=== PATIENT | female | born 1955 | race Caucasian/White ===

== ENCOUNTER 2020-02-26 23:59 | Inpatient (IN) ==
[2020-02-27] MEDS ORDERED: niCARdipine 20 MG/200 ML MLS IVC ONE (00:36)
[2020-02-27 00:45] LABS: Basophils # 0.1 K/mcL (0.0-0.2); Basophils % 0.5 %; Eosinophils # 0.2 K/mcL (0.0-0.6); Eosinophils % 1.8 %; Hematocrit 40.8 % (35.3-44.9); Hemoglobin 12.8 g/dL (11.5-15.4); Immature Granulocytes % 0.4 % (0-4); Lymphocytes # 2.3 K/mcL (0.6-4.6); Lymphocytes % 17.7 %; Mean Corpuscular HGB Conc 31.4 g/dL (31.6-35.5); Mean Corpuscular Hemoglobin 26.1 pg (28.0-33.3); Mean Corpuscular Volume 83.1 fL (83.0-100.0); Mean Platelet Volume 11.3 fL (9.4-12.4); Monocytes # 0.6 K/mcL (0.0-1.3); Monocytes % 4.3 %; Neutrophils # 9.9 K/mcL (1.6-8.9); Platelet Count 286 K/mcL (140-400); Red Blood Count 4.91 M/mcL (3.82-4.97); Red Cell Distribution Width 13.4 % (11.5-14.5); Segmented Neutrophils % 75.3 %; White Blood Count 13.1 K/mcL (4.3-11.1)
[2020-02-27 00:52] LABS: INR 1.1; Prothrombin Time 13.2 Seconds (9.4-12.1)
[2020-02-27] MEDS ORDERED: Isovue-370 500 ML BOTTLE IVP ONE ×3 (00:54→03:01)
[2020-02-27 00:55] LABS: Activated Partial Thrombo Time 31.9 Seconds (26.0-36.0)
[2020-02-27 00:58] LABS: Bilirubin,Urine Negative (Negative); Blood,Urine Trace (Negative); Clarity,Urine Clear (Clear); Color,Urine Colorless (Yellow); Glucose,Urine (UA) Normal (Normal); Ketones,Urine Negative (Negative); Leukocyte Esterase,Urine Negative (Negative); Nitrite,Urine Negative (Negative); Protein,Urine 70 mg/dL (Neg-Trace); RBC,Urine 0-3 per hpf (0-3); Specific Gravity,Urine 1.013 (1.010-1.025); Urobilinogen,Urine Normal (Normal); WBC,Urine 0-3 per hpf (0-3)
[2020-02-27 01:05] LABS: Amphetamine Screen,Urine Negative ng/mL (Cutoff=1000); Barbiturate Screen,Urine Negative ng/mL (Cutoff=200); Benzodiazepines Screen,Urine Negative ng/mL (Cutoff=200); Cannabinoid Screen,Urine Negative ng/mL (Cutoff = 50); Cocaine Screen,Urine Negative ng/mL (Cutoff= 300); Opiate Screen,Urine Positive ng/mL (Cutoff=300); Phencyclidine Screen,Urine Negative ng/mL (Cutoff=25)
[2020-02-27 01:07] LABS: Alanine Aminotransferase 19 Units/L (7-52); Albumin 4.6 g/dL (3.5-5.7); Albumin/Globulin Ratio 1.1 (1.1-2.2); Alkaline Phosphatase 94 Units/L (34-104); Aspartate Amino Transferase 27 Units/L (13-39); BUN/Creatinine Ratio 15 (6-26); Bilirubin,Direct 0.1 mg/dL (0.0-0.2); Bilirubin,Indirect 0.4 mg/dL (0.0-1.0); Bilirubin,Total 0.5 mg/dL (0.3-1.0); Blood Urea Nitrogen 11 mg/dL (8-23); Calcium 9.9 mg/dL (8.6-10.3); Carbon Dioxide 24 mEq/L (23-29); Chloride 100 mEq/L (98-107); Globulin 4.3 g/dL (2.4-3.5); Glucose 122 mg/dL (70-105); Lipase 218 Units/L (11-82); Magnesium 1.6 mg/dL (1.6-2.6); Osmolality,Calculated 285 (280-300); Phosphorous 1.7 mg/dL (2.7-4.5); Potassium 2.6 mEq/L (3.5-5.1); Sodium 137 mEq/L (136-145); Total Protein 8.9 g/dL (6.4-8.9); Troponin I < 0.03 ng/mL (< 0.04); eGFR For African Americans > 60 (> 60); eGFR For Non-African Americans > 60 (> 60)
[2020-02-27 01:13] LABS: ABG Base Excess 2 mEq/L (-2 to 3); ABG HCO3 26 mEq/L (21-27); ABG Oxygen Saturation 100 % (95-98); ABG PCO2 39 mmHg (35-45); ABG PH 7.43 pH Units (7.32-7.45); ABG PO2 503 mmHg (85-104); ABG TCO2 27 mEq/L (20-26); Blood Gas VT 450 cc
[2020-02-27] MEDS ORDERED: *HR* Midazolam HCl 2 MG/2 ML VIAL IVP ONE (02:39)
[2020-02-27] MEDS ORDERED: niCARdipine 20 MG/200 ML MLS IVC SCH (02:45)
[2020-02-27] MEDS ORDERED: *HR* LORazepam 2 MG/ML VIAL IVP ONE (03:38)
[2020-02-27] MEDS ORDERED: *HR* FentaNYL (PF) 100 MCG/2 ML VIAL IVP ONE (04:48)
[2020-02-27] MEDS ORDERED: Potassium Chloride 40 MEQ, Lidocaine 1% 2 ML in 0.9 % Sodium Chloride 500 ML IVPB ONE (05:13)
[2020-02-27] MEDS ORDERED: Ondansetron 4 MG/2 ML VIAL IVP PRN (05:14)
[2020-02-27] MEDS ORDERED: Naloxone 0.4 MG/ML INJ IVP PRN (05:14)
[2020-02-27] MEDS ORDERED: Ringers Solution, Lactated 1,000 ML IVC SCH (05:15)
[2020-02-27] MEDS ORDERED: Artificial Tears SOLN 15 ML BOTTLE BOTH EYES PRN (05:56)
[2020-02-27] MEDS: niCARdipine 20 MG/200 ML MLS IVC SCH ×2 (06:17→07:28)
[2020-02-27] MEDS: FentaNYL (PF) 1,000 MCG/100 ML IV.SOLN IVC SCH ×2 (06:17→07:24)
[2020-02-27] MEDS: Artificial Tears SOLN 15 ML BOTTLE BOTH EYES SCH ×5 (07:06→23:40)
[2020-02-27] MEDS: Chlorhexidine Rinse 15 ML MOUTHWASH MM SCH ×2 (07:25→20:41)
[2020-02-27] MEDS: Pantoprazole 40 MG VIAL IVP SCH (07:26)
[2020-02-27] MEDS ORDERED: Perflutren Lipid Microsphere 1.3 ML in 0.9 % Sodium Chloride 8.7 ML IVP PRN (08:40)
[2020-02-27] MEDS ORDERED: Piperacillin/Tazobactam 3.375 GM in 0.9 % Sodium Chloride Mini Bag 100 ML IVPB ONE (08:42)
[2020-02-27] MEDS: Dexmedetomidine HCl 400 MCG/100 ML MLS IVC SCH ×2 (08:48→17:29)
[2020-02-27] MEDS ORDERED: Furosemide 40 MG/4 ML VIAL IVP ONE (08:59)
[2020-02-27] MEDS ORDERED: Piperacillin/Tazobactam 3.375 GM in 0.9 % Sodium Chloride Mini Bag 100 ML IVPB SCH (09:00)
[2020-02-27 09:29] LABS: Basophils % 0.3 %; Eosinophils % 0.2 %; Hematocrit 39.8 % (35.3-44.9); Hemoglobin 12.1 g/dL (11.5-15.4); Immature Granulocytes % 0.4 % (0-4); Lymphocytes # 1.3 K/mcL (0.6-4.6); Lymphocytes % 11.3 %; Mean Corpuscular HGB Conc 30.4 g/dL (31.6-35.5); Mean Corpuscular Volume 85.4 fL (83.0-100.0); Mean Platelet Volume 10.4 fL (9.4-12.4); Monocytes # 0.6 K/mcL (0.0-1.3); Monocytes % 5.2 %; Neutrophils # 9.5 K/mcL (1.6-8.9); Platelet Count 278 K/mcL (140-400); Red Blood Count 4.66 M/mcL (3.82-4.97); Red Cell Distribution Width 13.5 % (11.5-14.5); Segmented Neutrophils % 82.6 %; White Blood Count 11.5 K/mcL (4.3-11.1)
[2020-02-27 09:51] LABS: BUN/Creatinine Ratio 16 (6-26); Blood Urea Nitrogen 11 mg/dL (8-23); Carbon Dioxide 27 mEq/L (23-29); Chloride 100 mEq/L (98-107); Creatine Kinase 83 Units/L (30-223); Glucose 123 mg/dL (70-105); Magnesium 1.6 mg/dL (1.6-2.6); Osmolality,Calculated 281 (280-300); Phosphorous 3.8 mg/dL (2.7-4.5); Potassium 3.5 mEq/L (3.5-5.1); Sodium 135 mEq/L (136-145); eGFR For African Americans > 60 (> 60); eGFR For Non-African Americans > 60 (> 60)
[2020-02-27 10:06] LABS: Acetaminophen < 10 mcg/mL (10-20); Ethanol < 10 mg/dL (Less than 10); Salicylate < 2.5 mg/dL (15.0-30.0)
[2020-02-27 10:07] LABS: Thyroid Stimulating Hormone 1.108 mcIU/mL (0.340-5.600)
[2020-02-27 10:21] LABS: C-Reactive Protein < 5 mg/L (Less than 10)
[2020-02-27] MEDS: *HR* Heparin 5,000 UNIT/ML VIAL SQ SCH ×2 (12:57→21:17)
[2020-02-27] MEDS ORDERED: *HR* Etomidate 20 MG/10 ML AMPUL IVP ONE (15:55)
[2020-02-27] MEDS ORDERED: *HR* Rocuronium Bromide 100 MG/10 ML VIAL IVP ONE (15:55)
[2020-02-28] MEDS: Artificial Tears SOLN 15 ML BOTTLE BOTH EYES SCH ×4 (03:40→13:48)
[2020-02-28 04:06] LABS: Basophils % 0.4 %; Eosinophils % 0.4 %; Hematocrit 33.9 % (35.3-44.9); Hemoglobin 11.1 g/dL (11.5-15.4); Immature Granulocytes % 0.3 % (0-4); Lymphocytes # 1.7 K/mcL (0.6-4.6); Lymphocytes % 17.4 %; Mean Corpuscular HGB Conc 32.7 g/dL (31.6-35.5); Mean Corpuscular Hemoglobin 27.2 pg (28.0-33.3); Mean Corpuscular Volume 83.1 fL (83.0-100.0); Mean Platelet Volume 11.1 fL (9.4-12.4); Monocytes # 0.6 K/mcL (0.0-1.3); Neutrophils # 7.5 K/mcL (1.6-8.9); Platelet Count 293 K/mcL (140-400); Red Blood Count 4.08 M/mcL (3.82-4.97); Red Cell Distribution Width 13.7 % (11.5-14.5); Segmented Neutrophils % 75.5 %
[2020-02-28 04:25] LABS: Calcium 8.8 mg/dL (8.6-10.3); Magnesium 2.2 mg/dL (1.6-2.6); Phosphorous 4.6 mg/dL (2.7-4.5); Potassium 3.3 mEq/L (3.5-5.1)
[2020-02-28 04:57] LABS: ABG Base Excess 3 mEq/L (-2 to 3); ABG HCO3 28 mEq/L (21-27); ABG Oxygen Saturation 96 % (95-98); ABG PCO2 41 mmHg (35-45); ABG PH 7.44 pH Units (7.32-7.45); ABG PO2 77 mmHg (85-104); ABG TCO2 29 mEq/L (20-26); Blood Gas Modality ASSIST CONTROL; Blood Gas VT 400 cc
[2020-02-28] MEDS: Dexmedetomidine HCl 400 MCG/100 ML MLS IVC SCH (05:26)
[2020-02-28] MEDS: *HR* Heparin 5,000 UNIT/ML VIAL SQ SCH ×3 (05:27→20:39)
[2020-02-28 07:28] LABS: Basophils # 0.1 K/mcL (0.0-0.2); Basophils % 0.5 %; Eosinophils # 0.1 K/mcL (0.0-0.6); Eosinophils % 0.7 %; Hematocrit 35.3 % (35.3-44.9); Hemoglobin 10.9 g/dL (11.5-15.4); Immature Granulocytes % 0.3 % (0-4); Lymphocytes % 19.1 %; Mean Corpuscular HGB Conc 30.9 g/dL (31.6-35.5); Mean Corpuscular Hemoglobin 25.9 pg (28.0-33.3); Mean Corpuscular Volume 83.8 fL (83.0-100.0); Mean Platelet Volume 10.9 fL (9.4-12.4); Monocytes # 0.8 K/mcL (0.0-1.3); Monocytes % 7.8 %; Neutrophils # 7.5 K/mcL (1.6-8.9); Platelet Count 278 K/mcL (140-400); Red Blood Count 4.21 M/mcL (3.82-4.97); Red Cell Distribution Width 13.9 % (11.5-14.5); Segmented Neutrophils % 71.6 %; White Blood Count 10.4 K/mcL (4.3-11.1)
[2020-02-28 07:46] LABS: Potassium 3.6 mEq/L (3.5-5.1)
[2020-02-28] MEDS: Chlorhexidine Rinse 15 ML MOUTHWASH MM SCH (08:23)
[2020-02-28] MEDS: Pantoprazole 40 MG VIAL IVP SCH (08:51)
[2020-02-28] MEDS ORDERED: Ondansetron 4 MG/2 ML VIAL IVP PRN (16:41)
[2020-02-28] MEDS ORDERED: Artificial Tears SOLN 15 ML BOTTLE BOTH EYES PRN (16:41)
[2020-02-28] MEDS ORDERED: Acetaminophen 325 MG TABLET PO PRN (20:07)
[2020-02-28] MEDS ORDERED: *HR* OxyCODONE Immed Rel 5 MG TABLET PO PRN (20:07)
[2020-02-28] MEDS: *HR* HYDROcodone/Acet 5/325 mg TABLET PO PRN (20:39)
[2020-02-29 05:45] LABS: Hematocrit 36.3 % (35.3-44.9); Hemoglobin 11.3 g/dL (11.5-15.4); Mean Corpuscular HGB Conc 31.1 g/dL (31.6-35.5); Mean Corpuscular Hemoglobin 26.7 pg (28.0-33.3); Mean Corpuscular Volume 85.6 fL (83.0-100.0); Mean Platelet Volume 10.5 fL (9.4-12.4); Platelet Count 268 K/mcL (140-400); Red Blood Count 4.24 M/mcL (3.82-4.97); Red Cell Distribution Width 14.1 % (11.5-14.5); White Blood Count 8.3 K/mcL (4.3-11.1)
[2020-02-29 06:07] LABS: BUN/Creatinine Ratio 25 (6-26); Blood Urea Nitrogen 19 mg/dL (8-23); Carbon Dioxide 25 mEq/L (23-29); Chloride 103 mEq/L (98-107); Glucose 83 mg/dL (70-105); Osmolality,Calculated 285 (280-300); Potassium 3.2 mEq/L (3.5-5.1); Sodium 137 mEq/L (136-145); eGFR For African Americans > 60 (> 60); eGFR For Non-African Americans > 60 (> 60)
[2020-02-29] MEDS: *HR* Heparin 5,000 UNIT/ML VIAL SQ SCH ×3 (06:21→21:56)
[2020-02-29] MEDS: *HR* HYDROcodone/Acet 5/325 mg TABLET PO PRN ×2 (12:01→18:27)
[2020-02-29] MEDS: lisinopriL 20 MG TABLET PO SCH (13:04)
[2020-02-29] MEDS: amLODIPine 5 MG TABLET PO SCH (16:02)
[2020-03-01] MEDS: *HR* HYDROcodone/Acet 5/325 mg TABLET PO PRN ×3 (00:42→13:33)
[2020-03-01 04:49] LABS: Basophils # 0.1 K/mcL (0.0-0.2); Basophils % 0.7 %; Eosinophils # 0.2 K/mcL (0.0-0.6); Hematocrit 37.3 % (35.3-44.9); Hemoglobin 11.7 g/dL (11.5-15.4); Immature Granulocytes % 0.1 % (0-4); Lymphocytes # 2.1 K/mcL (0.6-4.6); Mean Corpuscular HGB Conc 31.4 g/dL (31.6-35.5); Mean Corpuscular Hemoglobin 26.8 pg (28.0-33.3); Mean Corpuscular Volume 85.6 fL (83.0-100.0); Mean Platelet Volume 10.3 fL (9.4-12.4); Monocytes # 0.5 K/mcL (0.0-1.3); Monocytes % 7.8 %; Platelet Count 274 K/mcL (140-400); Red Blood Count 4.36 M/mcL (3.82-4.97); Segmented Neutrophils % 57.4 %; White Blood Count 6.9 K/mcL (4.3-11.1)
[2020-03-01 05:11] LABS: BUN/Creatinine Ratio 22 (6-26); Blood Urea Nitrogen 14 mg/dL (8-23); Calcium 9.3 mg/dL (8.6-10.3); Carbon Dioxide 24 mEq/L (23-29); Chloride 106 mEq/L (98-107); Glucose 90 mg/dL (70-105); Osmolality,Calculated 286 (280-300); Potassium 3.7 mEq/L (3.5-5.1); Sodium 138 mEq/L (136-145); eGFR For African Americans > 60 (> 60); eGFR For Non-African Americans > 60 (> 60)
[2020-03-01] MEDS: *HR* Heparin 5,000 UNIT/ML VIAL SQ SCH (05:44)
[2020-03-01] MEDS: amLODIPine 5 MG TABLET PO SCH (09:13)
[2020-03-01] MEDS: lisinopriL 20 MG TABLET PO SCH (09:14)
[2020-03-01 11:47] VITALS: BP 183/84
== END 2020-03-01 14:39 | disposition home or self-care (01) | DRG 812 ==
LOC: EMEROOARM 23:59 → INTOOBSV 02-27 05:11 → ICNU 02-27 05:11 → SUATTDRO 02-27 05:50 → 3NENU 02-29 15:11
PROVIDERS: ADMIT Student in an Organized Health Care Education/Training Program; ATTEND Student in an Organized Health Care Education/Training Program